=== PATIENT | male | born 1985 | race Caucasian/White ===

== ENCOUNTER 2019-06-18 00:45 | Emergency (ER) | payer OTHER ==
[2019-06-18 00:48] VITALS: BP 117/77; PULSE 84; TEMP 98.2; BMI 33.0
--- NOTE | 2019-06-18 00:58 | PDOC ---
History of Present Illness - General Chief Complaint: Injury Stated Complaint: INJURY-YPD History Source: Patient Exam Limitations: No Limitations - History of Present Illness Initial Comments: 33 yo M with no past medical history presents to the emergency department s/p fall onto outstretched right hand when running up a staircase. Per the patient, he has no weakness in the right hand or sensory deficits. Denies the following: inability to junior art director, limited rOM, inability to feel in the right hand, right shoulder pain, right elbow pain, and chest pain. Allergies: NKDA Past History - Past Medical History Allergies/Adverse Reactions: Allergies Allergy/AdvReac Type Severity Reaction Status Date / Time No Known Allergies Allergy Verified 06/18/19 01:45 Home Medications: Ambulatory Orders NK [No Known Home Medication] 06/18/19 COPD: No - Psycho Social/Smoking Cessation Hx Smoking History: Never smoked Review of Systems - Review of Systems Able to Perform ROS?: Yes Is the patient limited Austrian proficient: No Constitutional: No: Chills, Diaphoresis, Fever, Weakness HEENTM: No: Eye Pain, Ear Pain, Throat Pain, Mouth Pain Respiratory: No: Cough, Shortness of Breath Cardiac (ROS): No: Chest Pain, Lightheadedness, Syncope ABD/GI: No: Nausea, Rectal Bleeding, Vomiting, Abdominal cramping : No: Burning, Dysuria Musculoskeletal: Yes: Joint Pain (right wrist). No: Back Pain, Neck Pain Integumentary: No: Bruising, Erythema, Rash Neurological: No: Headache, Numbness Psychiatric: No: Change in Appetite Endocrine: No: Unexplained Weight Loss Hematologic/Lymphatic: No: Anemia *Physical Exam - Vital Signs Last Vital Signs Temp Pulse Resp BP Pulse Ox 98.2 F 84 18 117/77 96 06/18/19 00:46 06/18/19 00:46 06/18/19 00:46 06/18/19 00:46 06/18/19 00:46 - Physical Exam General Appearance: Yes: Nourished, Appropriately Dressed. No: Apparent Distress, Intoxicated HEENT: positive: EOMI, RIYA, Normal Voice, Hearing Grossly Normal. negative: Pale Conjunctivae, Scleral Icterus (R), Scleral Icterus (L), Muffled/Hoarse voice, Excessive drooling Neck: positive: Trachea midline, Supple. negative: Tender, Lymphadenopathy (R) , Lymphadenopathy (L) Respiratory/Chest: positive: Lungs Clear, Normal Breath Sounds. negative: Chest Tender, Respiratory Distress, Accessory Muscle Use Cardiovascular: positive: Regular Rhythm, Regular Rate, S1, S2. negative: Systolic Murmur Gastrointestinal/Abdominal: positive: Normal Bowel Sounds, Flat, Soft. negative : Tender Lymphatic: negative: Adenopathy Musculoskeletal: positive: Normal Inspection. negative: CVA Tenderness, Vertebral Tenderness Extremity: positive: Normal Capillary Refill, Normal Range of Motion, Tender ( distal 1/3 to distal radius of the right forearm. no step offs. negative snuff box. intact sensation and 5/5 motor strength. ) Integumentary: positive: Normal Color, Dry, Warm Neurologic: positive: Fully Oriented, Alert, Normal Mood/Affect Medical Decision Making - Medical Decision Making 33 yo M with no past medical history presents to the emergency department s/p fall onto outstretched right hand when running up a staircase. Initial vitals: Initial Vital Signs Temp Pulse Resp BP Pulse Ox 98.2 F 84 18 117/77 96 06/18/19 00:46 06/18/19 00:46 06/18/19 00:46 06/18/19 00:46 06/18/19 00:46 Work up: patient presents s/p fall. no tenderness to palpation in the anatomical snuff box. ROM intact Will obtain xrays to rule out fracture Xrays negative for acute fracture patient given motrin for pain relief. Will have them follow up with PMD within 1 week after discharge. Dispo: Discharge Discharge - Discharge Information Problems reviewed: Yes Clinical Impression/Diagnosis: Right wrist pain, Fall Disposition: HOME - Admission No - Follow up/Referral Referrals: Felice Acosta [Primary Care Provider] - Navarro Abdi DO [Staff Physician] - - Patient Discharge Instructions Patient Printed Discharge Instructions: DI for Wrist Pain Additional Instructions: You were seen in the emergency department for the evaluation of your wrist pain. Your xray was negative for injuries that are acute. Please use motrin and tylenol as needed and how it is directed on the label. Please return to the emergency department if you have worsening or new concerning symptoms. Thank you. Please follow up with the orthopedic doctor in 1-2 weeks after discharge for follow up care and management. Thank you. - Post Discharge Activity Work/Back to School Note: Back to Work
[2019-06-18] MEDS ORDERED: IBUPROFEN 600 MG TABLET (FP) PO ONE (01:23)
--- NOTE | 2019-06-18 01:43 | PDOC ---
Documentation entered by Jenna Randolph SCRIBE, acting as scribe for Светлана Barnes MD. Светлана Barnes MD: This documentation has been prepared by the liliamibe, Jenna Randolph SCRIBE, under my direction and personally reviewed by me in its entirety. I confirm that the documentation accurately reflects all work, treatment, procedures, and medical decision making performed by me. 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
== END 2019-06-18 01:58 | disposition home or self-care (01) ==
LOC: JER 00:45
DX: S69.81XA Other specified injuries of right wrist, hand and finger(s), initial encounter (principal); M25.531 Pain in right wrist; W10.8XXA Fall (on) (from) other stairs and steps, initial encounter; Y93.02 Activity, running; Y92.89 Other specified places as the place of occurrence of the external cause; Y99.0 Civilian activity done for income or pay
CPT/HCPCS: 73110-TC-RT-FY; 99283-25